=== PATIENT | female | born 1940 | race Caucasian/White ===

== ENCOUNTER 2021-10-14 18:40 | Inpatient (IN) | payer MEDICARE, OTHER, SELFPAY ==
--- NOTE | 2021-10-14 | ECG_ITS ---
Test Reason : REPEAT Blood Pressure : / mmHG Vent. Rate : 072 BPM Atrial Rate : 072 BPM P-R Int : 202 ms QRS Dur : 072 ms QT Int : 422 ms P-R-T Axes : 059 -10 012 degrees QTc Int : 462 ms Normal sinus rhythm Nonspecific ST and T wave abnormality Borderline ECG When compared with ECG of 14-OCT-2021 22:32, No significant change was found Referred By: Anand Diaz Electronically Signed By:RAJ DOMINGUEZ
--- NOTE | 2021-10-14 | ECG_ITS ---
Test Reason : BACK PAIN Blood Pressure : / mmHG Vent. Rate : 072 BPM Atrial Rate : 072 BPM P-R Int : 210 ms QRS Dur : 066 ms QT Int : 408 ms P-R-T Axes : 057 -09 012 degrees QTc Int : 446 ms Artifact in tracing Sinus rhythm with 1st degree A-V block Borderline ECG No previous ECGs available Referred By: Anand Diaz Electronically Signed By:RAJ DOMINGUEZ
--- NOTE | ~2021-10-14 | XR_ITS ---
EXAMINATION: XR CHEST CLINICAL INFORMATION: Chest pain with known right rib fractures. COMPARISON: Chest CT scan dated 10/14/2021 TECHNIQUE: Frontal view of the chest was obtained. FINDINGS: The lungs are clear. There is no pneumothorax. The heart and mediastinal structures are unremarkable. Moderate size hiatal hernia. Known right rib fractures without significant abnormality mild superior thoracic dextro scoliosis. XR/XR chest 1V IMPRESSION: 1. No acute cardiopulmonary process. No pneumothorax. 2. Known right rib fractures better visualized on the recent CT scan.
--- NOTE | ~2021-10-14 | CT_ITS ---
EXAMINATION: CT ABDOMEN AND PELVIS WITHOUT CONTRAST CLINICAL INFORMATION: Fall with question of abdominal injury COMPARISON: None TECHNIQUE: Multidetector volumetric imaging was performed from the superior aspect of the liver through the pubic symphysis. Sagittal and coronal reformatted images were obtained on the technologist's workstation. This CT examination was performed using dose optimization techniques as appropriate, variously including the following: *Automated exposure control *Adjustment of mA and/or kV according to patient size (this includes techniques or standardized protocols for targeted exams where dose is matched to indication/reason for exam; i.e. extremities or head) *Use of iterative reconstruction technique DLP: 485 mGy-cm FINDINGS: LUNG BASES: The visualized lung bases are unremarkable. LIVER, GALLBLADDER, AND BILIARY TREE: The liver is normal in size, shape, and attenuation. No focal hepatic lesion or biliary ductal dilatation is present. The gallbladder is unremarkable with no evidence of radiopaque gallstones, gallbladder wall thickening, or obvious pericholecystic inflammatory changes. PANCREAS: Unremarkable. SPLEEN: Unremarkable. ADRENAL GLANDS: Unremarkable. KIDNEYS AND URETERS: The kidneys are normal in size, shape, and attenuation. Bilateral renal cysts are present, mostly Bosniak class wine. 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 No hydronephrosis, hydroureter, or calculi seen. No perinephric stranding. BLADDER: Unremarkable. GASTROINTESTINAL TRACT: A small hiatal hernia is present. Status post right hemicolectomy. The small and large bowel are otherwise unremarkable. ABDOMINAL WALL: No significant hernia is appreciated. A tiny indirect right inguinal hernia seen containing only fat. LYMPH NODES: No retroperitoneal lymphadenopathy. No retroperitoneal hemorrhage. VASCULAR: Calcific atherosclerotic changes present in the aorta and iliofemoral vessels. PELVIC VISCERA: Surgically removed OSSEOUS STRUCTURES: Marked degenerative changes and scoliosis are present throughout the spine. CT/CT abdomen pelvis wo con IMPRESSION: No evidence of a traumatic injury in the abdomen or pelvis incidental findings described above Fleischner guidelines were followed.
--- NOTE | ~2021-10-14 | CT_ITS ---
EXAMINATION: CT CHEST WITHOUT CONTRAST CLINICAL INFORMATION: Right-sided chest pain after fall. COMPARISON: None TECHNIQUE: Multidetector volumetric CT imaging of the chest was done. Axial MIP volume rendering provided. Sagittal and coronal reformatted images were obtained. This CT examination was performed using dose optimization techniques as appropriate, variously including the following: *Automated exposure control *Adjustment of mA and/or kV according to patient size (this includes techniques or standardized protocols for targeted exams where dose is matched to indication/reason for exam; i.e. extremities or head) *Use of iterative reconstruction technique DLP: 206 mGy-cm FINDINGS: INTERN RETAIL: Noncontributory LUNGS: The lungs are clear with no evidence of inflammation or nodules. MEDIASTINUM: The mediastinum is normal. PLEURA: There is no pleural effusion. No pleural mass or thickening. AXILLA: No lymphadenopathy. UPPER ABDOMEN: Unremarkable. OSSEOUS STRUCTURES: Acute minimally displaced fractures involving the right seventh and eighth ribs posterolaterally. No underlying parenchymal abnormality. CT/CT chest wo con IMPRESSION: Minimally displaced right seventh and eighth rib fractures as above. This is acute. No pneumothorax. Fleischner guidelines were followed.
[2021-10-14 18:51] VITALS: BP 138/70; PULSE 72; O2SAT 100; BMI 27.3
--- NOTE | 2021-10-14 18:58 | ED_ITS ---
HPI - Fall General Chief Complaint: Fall Stated Complaint: fall Time Seen by Provider: 10/14/21 18:55 Source: patient and EMS Mode of arrival: EMS Limitations: no limitations History of Present Illness HPI Narrative: 81-year-old female came in by ambulance for evaluation after a fall. Patient was visiting her daughter for vacation going down missed 1 step of stair try to hold on the pole patient fell landing on her right side complaining of right chest wall pain, patient declined head injury, no LOC, no nausea, no vomiting. No headache, no blurry vision. Related Data Allergies Allergy/AdvReac Type Severity Reaction Status Date / Time No Known Allergies Allergy Verified 10/14/21 18:56 Review of Systems Review of Systems: All other systems are reviewed and are negative Constitutional: Reports as per HPI and Reports no additional constitutional complaints Eyes: Reports as per HPI and Reports no additional eye complaints Reports system reviewed and no additional complaints, except as documented Cardiovascular: Reports as per HPI and Reports no additional cardiovascular complaints Respiratory: Reports as per HPI and Reports no additional respiratory complaints Gastrointestinal: Reports as per HPI and Reports no additional gastrointestinal complaints Genitourinary: Reports no additional female genitourinary complaints Musculoskeletal: Reports no additional musculoskeletal complaints Skin/Breast: Reports system reviewed and no additional complaints, except as docu Psychiatric: Reports no additional psychiatric complaints Endocrine: Reports no additional endocrine complaints Hematologic/Lymphatic: Reports no additional hematologic/lymphatic complaints Allergic/Immunologic: Reports no additional allergic/immunologic complaints Reports system reviewed and no additional complaints, except as documented and Reports Abnormal speech present [facility] Social History Social History Advance Directives: Yes Advance Directives Information Provided: No Advance Directives on File: No Physical Exam Vital Signs: Vital Signs: Last Vital Signs Temp 98 F 10/14/21 19:24 Pulse 85 10/14/21 19:24 Resp 20 10/14/21 19:24 BP 135/55 L 10/14/21 19:24 Pulse Ox 99 10/14/21 19:24 O2 Del Method 10/14/21 19:24 BMI result Body Mass Index 27.3 Vital signs have been reviewed as appeared to be correct. Blood pressure normal. Heart rate normal. Respiration rate normal. Temperature normal. Oxygen saturation normal. Appearance: Alert. Oriented X3. No acute distress. Head: Normal external exam. Normocephalic. Atraumatic. No Mtz signs noted. No raccoon eyes noted Eyes: PERRLA. EOMI. Conjunctiva and sclera normal. Eyelids normal. ENT: TM's Normal. Pharynx normal. Uvula midline. Moist mucous membranes. No trismus noted. No drooling noted. No muffled voice noted. Neck: Normal inspection. Neck supple. FROM. No adenopathy. Thyroid Normal. No meningeal signs. No neck mass noted. CVS: Normal heart rate and rhythm. Heart sound normal. No murmurs noted. Pulses normal throughout. Respiratory: No respiratory distress. Painless inspiration. Breath sounds normal. No wheezes/rales/rhonchi noted. Right-sided chest wall tenderness, no step-off, no rebound tenderness, no deformity. No accessory muscle usage noted or decreased air movement noted. Abdomen: Soft and nontender. Bowel sounds normal in all 4 quadrants. No distention noted. No organomegaly noted. No visible injury noted. Back: No CVA tenderness. Full range of motion noted. Skin: Skin warm and dry. Normal skin color. Normal skin turgor. No rashes/lesions/lacerations noted. Extremities: No lower extremity edema. Extremities exhibit normal range of motion. Extremities nontender. Small skin tear of the right forearm. Neuro: Oriented X 3. Cranial nerve exam: II-XII are grossly intact No motor deficit. No sensory deficit. Reflexes normal. Course Course Course Narrative: 81-year-old female had a mechanical fall today, no head injury or LOC, CT of the chest showed to lower ribs fracture with no underlying lung injury or intra- abdominal injuries, given the age of the patient and the need for breathing exercises training the need of narcotic to control patient's pain will admit overnight. MDM - Fall Imaging Data Chest CT: Attestation: I personally reviewed and interpreted this imaging study as follows: Radiologist's impression: Minimally displaced right seventh and eighth rib fractures as above. This is acute. No pneumothorax.? ? Abdomen and pelvis CT: Attestation: I personally reviewed and interpreted this imaging study as follows: Radiologist's impression: No evidence of a traumatic injury in the abdomen or pelvis incidental findings described above? ? Discharge Plan Discharge Clinical Impression: Fracture of rib Patient Disposition: Admitted As Inpatient
[2021-10-14 19:24] VITALS: BP 135/55; PULSE 85; RESP 20; TEMP 36.6; O2SAT 99
[2021-10-14] MEDS: Morphine Sulfate 2 MG/ML CARTRIDGE IVPUSH (19:29)
--- NOTE | 2021-10-14 21:25 | PC.NURSE ---
kenneth daughter [phone] work # [phone]
[2021-10-14 21:26] VITALS: BP 130/59; RESP 16
[2021-10-14] MEDS: HYDROmorphone HCl 1 MG/ML SYRINGE IVPUSH (21:32)
--- NOTE | 2021-10-14 21:53 | PC.NURSE ---
REVIEWED PURPOSE AND METHOD FOR INCENTIVE SPIROMETRY . PT DEMONSTRATED APPROPRIATE USE. PT AWARE OF PLAN FOR ADMISSION. A&OX3.
[2021-10-14 22:00] LABS: MANUAL DIFF FLAG NO
[2021-10-14 22:03] LABS: Basophils Percent Auto 0.4 % (0-2); Eosinophils Percent Auto 0.4 % (0-4); Hematocrit 27.3 % (37.0-47.0); Hemoglobin 8.7 g/dl (12.0-16.0); Imm Gran Abs Auto 0.05 X10*3/uL (0.00-0.03); Imm Gran Pct Auto 0.5 % (0.0-0.4); Lymphocytes Absolute Auto 1.3 X10*3/uL (1.2-4.9); Lymphocytes Percent Auto 13.6 % (20-40); Mean Corpuscular HGB Conc 31.9 g/dl (31.0-35.0); Mean Corpuscular Hemoglobin 29.7 pg (27.0-33.0); Mean Corpuscular Volume 93.2 fL (80.0-98.0); Mean Platelet Volume 8.7 fL (9.4-12.3); Monocytes Absolute Auto 0.6 X10*3/uL (0.1-1.2); Monocytes Percent Auto 6.4 % (2-11); Neutrophils Absolute Auto 7.5 x10*3/uL (2.0-8.3); Neutrophils Percent Auto 78.7 % (45-73); Platelet Count 206 X10*3/uL (160-400); Red Blood Count 2.93 X10*6/uL (4.20-5.50); Red Cell Distribution Width 12.9 % (11.0-16.0); White Blood Count 9.5 X10*3/uL (4.8-10.8)
[2021-10-14 22:17] LABS: COVID-19 Test Negative (Negative)
[2021-10-14 22:22] LABS: Alanine Aminotransferase 17 U/L (0-31); Albumin Level 3.5 g/dL (3.5-5.0); Alkaline Phosphatase 54 U/L (39-117); Anion Gap 13 (12-20); Aspartate Amino Transferase 18 U/L (5-31); Bilirubin Direct < 0.2 mg/dL (0.0-0.5); Bilirubin Total < 0.2 mg/dL (0.0-1.0); Blood Urea Nitrogen 60 mg/dL (9-16); Calcium 8.2 mg/dL (8.4-10.2); Carbon Dioxide 18 mmol/L (22-29); Chloride 110 mmol/L (96-108); Creatinine Clr Calc Pharmacy 12.4; Estimated Glomerular Filt Rate 16; Glucose Random 153 mg/dL (60-115); Lipase 44 U/L (8-78); Potassium 4.1 mmol/L (3.3-5.1); Sodium 137 mmol/L (135-145)
[2021-10-14 23:42] VITALS: BP 130/52; PULSE 70; RESP 18; O2SAT 99
[2021-10-15] VITALS (8 sets, daily range): BP systolic 106–156; BP diastolic 55–75; PULSE 57–96; RESP 18–20; TEMP 36.1–37; O2SAT 59–98; BMI 28.3
--- NOTE | 2021-10-15 | PC.NURSE ---
repoirt given to [facility] rn, [facility] transport
[2021-10-15] MEDS: 0.9 % Sodium Chloride Flush 3 ML SYRINGE IVFLUSH ×4 (01:50→20:14)
--- NOTE | 2021-10-15 03:07 | PM.IMHP ---
History of Present Illness Date of Service: 10/14/21 Chief Complaint: Fall 81-year-old female with a past medical history of hypertension presented to the hospital today with a chief complaint of fall. Patient reports that she be state mass to see her daughter plan to stay here for 2 weeks. Today she was trying to get into the;, missed a step, subsequently landed on her side of the chest, hitting the stair. Denies any head strike or loss of consciousness. Followed by showed on of severe pain in her right lateral chest wall; subsequently came to the ER for further evaluation. Denies any neck pain, back pain, hip pain. Denies any numbness tingling or focal weakness. Denies any fever chills cough. Review of all other systems is negative except mentioned above ER course: Per ER team patient noted to have right lateral chest wall pain; CT chest showed to rib fractures. No pulmonary complications. Breathing comfortably on room air. Patient was given pain medications. On labs noted to have elevated troponin at 0 60s; EKG was nonischemic. Patient denied any chest pain. Admitted to the hospital for further management. PMFSH Pertinent family history: parents disease-father had lung cancer and bone cancer. Social History Household Members: None Housing: Apartment Do you presently have visiting nurse or other home services: No Patient Tobacco Use Status: Never used Tobacco Use of substances other than those prescribed or required for medical reasons: No Currently Displaying Signs/Symptoms of Drug Intoxication Withdrawal: No Any prior treatment program specific to substance use: No Have you been hit, kicked, punched, or otherwise hurt by someone within the past year? If so, by whom?: No Do you feel safe in your current relationship?: No Is there a partner from a previous relationship who is making you feel unsafe now?: No Are you made to feel afraid or neglected: No Advance Directives: Yes Advance Directives Information Provided: No Advance Directives on File: No Advance Directives Date on File: 10/15/21 Do you have thoughts of harming others: None Do you have a plan to hurt others: No Plan Recently lost weight without trying: No Eating poorly because of decreased appetite: No Nutrition Risks: No Nutritional Risk Patient : No : No Poor oral hygiene: No Meds Allergies Allergy/AdvReac Type Severity Reaction Status Date / Time No Known Allergies Allergy Verified 10/14/21 18:56 Active Medications: Current Medications Acetaminophen (Acetaminophen 325 Mg Tablet) 650 mg PO Q6H PRN PRN Reason: Pain, Mild (Pain Scale 1-3) Hydromorphone HCl (Hydromorphone Hcl 0.5 Mg/0.5 Ml Syringe) 0.5 mg IVPUSH Q4H PRN; Protocol PRN Reason: Pain, Severe (Pain Scale 7-10) Melatonin (Melatonin 3 Mg Tablet) 6 mg PO BEDTIME PRN PRN Reason: Insomnia Senna (Sennosides 8.6 Mg Tablet) 17.2 mg PO BEDTIME PRN PRN Reason: Constipation Sodium Chloride (0.9 % Sodium Chloride Flush 3 Ml Syringe) 3 ml IVFLUSH QSHIFT MARLENY Last Admin: 10/15/21 01:50 Dose: 3 ml Physical Exam Vital Signs and Narrative: Vital Signs: Last Vital Signs Temp 98.3 F 10/15/21 00:00 Pulse 96 10/15/21 00:00 Resp 20 10/15/21 00:00 BP 145/66 H 10/15/21 00:00 Pulse Ox 96 10/15/21 00:00 O2 Del Method 10/15/21 00:00 BMI result Body Mass Index 28.3 Gen: Appears be in no acute distress ; breathing comfortably on room air. Saturating well. HEENT: NCAT, Moist mucosa. Pulmonary: Vesicular breath sounds, fair air entry; tender on the right lateral chest wall; no gross ecchymosis noted. CVS: Normal S1-S2 Abdomen: BS+, Soft, Nontender Extremities: Warm well perfused ; trace pedal edema-chronic per patient Neuro: Alert and awake. Grossly nonfocal Results Labs CBC and Chem 7: 10/14/21 21:55 10/14/21 21:55 Labs: Laboratory Results - last 24 hr 10/14/21 10/14/21 10/14/21 21:55 21:55 21:55 MCV 93.2 MCH 29.7 MCHC 31.9 RDW 12.9 Plt Count 206 MPV 8.7 L Immature Gran % (Auto) 0.5 H Neut % (Auto) 78.7 H Lymph % (Auto) 13.6 L [place] % (Auto) 6.4 Eos % (Auto) 0.4 Baso % (Auto) 0.4 Lymph # (Auto) 1.3 [place] # (Auto) 0.6 Eos # (Auto) 0.0 Baso # (Auto) 0.0 Abs Immat Gran (auto) 0.05 H Absolute Neuts (auto) 7.5 Absolute Nucleated RBC 0.000 Nucleated RBC % (auto) 0.0 Anion Gap 13 Estim Creat Clear Calc 12.4 Estimated GFR 16 Random Glucose 153 H Calcium 8.2 L Total Bilirubin < 0.2 Direct Bilirubin < 0.2 AST 18 ALT 17 Alkaline Phosphatase 54 Troponin I High Sens 61.0 H* Total Protein 6.0 L Albumin 3.5 Lipase 44 COVID-19 ([facility]) COVID-19 Clin Com 10/14/21 10/15/21 21:55 01:19 MCV MCH MCHC RDW Plt Count MPV Immature Gran % (Auto) Neut % (Auto) Lymph % (Auto) [place] % (Auto) Eos % (Auto) Baso % (Auto) Lymph # (Auto) [place] # (Auto) Eos # (Auto) Baso # (Auto) Abs Immat Gran (auto) Absolute Neuts (auto) Absolute Nucleated RBC Nucleated RBC % (auto) Anion Gap Estim Creat Clear Calc Estimated GFR Random Glucose Calcium Total Bilirubin Direct Bilirubin AST ALT Alkaline Phosphatase Troponin I High Sens 69.0 H* Total Protein Albumin Lipase COVID-19 ([facility]) Negative COVID-19 Clin Com See Note Imaging Radiologist's Impressions: Impressions Abdomen/Pelvis CT 10/14/21 19:28 IMPRESSION: No evidence of a traumatic injury in the abdomen or pelvis incidental findings described above Fleischner guidelines were followed. Chest CT 10/14/21 19:59 IMPRESSION: Minimally displaced right seventh and eighth rib fractures as above. This is acute. No pneumothorax. Fleischner guidelines were followed. Assessment and Plan (1) Fracture of rib: Status: Acute Plan 81-year-old female with a past medical history of hypertension presented to the hospital today with a chief complaint of fall. Sustained rib fractures. Admitted for further management. Fall: Mechanical in nature. Rib fracture: CT scan showed minimally displaced 7th and 8 ribs. No pneumothorax. Pain control. CT surgery follow-up. elevated troponin: Patient denies any chest pain. EKG nonischemic. Troponin noted to be 61-->69. will obtain echocardiogram. Cardiology follow-up. History of hypertension: Continue home amlodipine. History of peripheral edema: Continue home torsemide. DVT prophylaxis: Subcu heparin Code status: Full code Quality Stroke Does the patient have a stroke diagnosis?: No VTE Prior VTE?: No VTE Risk Level:: Medical - moderate - high VTE Device Contraindication: N/A - Device Ordered VTE Drug Contraindication: Treatment Not Indicated
[2021-10-15] MEDS: HYDROmorphone HCl 0.5 MG/0.5 ML SYRINGE IVPUSH ×4 (04:19→21:44)
--- NOTE | 2021-10-15 04:22 | PC.NURSE ---
Pt arrived on unit around 00:40. Pt oriented to unit, admission assessment complete-see charting. Attempted to teach pt proper use of IS. Pt could not comprehend to suck (like a straw)instead of blowing into the IS. Pt awake at present time (04:19) C/O 10/10 right rib pain-medicated with prn IV Dilaudid. Attempt to reteach explaining its like a straw-pt cannot comprehend-continues to blow into IS. Will pass along in report and will continue to monitor.
[2021-10-15 06:26] LABS: MANUAL DIFF FLAG NO
[2021-10-15 06:32] LABS: Basophils Percent Auto 0.5 % (0-2); Eosinophils Absolute Auto 0.2 X10*3/uL (0.0-0.4); Eosinophils Percent Auto 2.3 % (0-4); Hematocrit 27.8 % (37.0-47.0); Hemoglobin 8.8 g/dl (12.0-16.0); Imm Gran Abs Auto 0.04 X10*3/uL (0.00-0.03); Imm Gran Pct Auto 0.5 % (0.0-0.4); Lymphocytes Absolute Auto 1.7 X10*3/uL (1.2-4.9); Mean Corpuscular HGB Conc 31.7 g/dl (31.0-35.0); Mean Corpuscular Hemoglobin 29.8 pg (27.0-33.0); Mean Corpuscular Volume 94.2 fL (80.0-98.0); Mean Platelet Volume 8.7 fL (9.4-12.3); Monocytes Percent Auto 12.3 % (2-11); Neutrophils Absolute Auto 5.2 x10*3/uL (2.0-8.3); Neutrophils Percent Auto 63.4 % (45-73); Platelet Count 200 X10*3/uL (160-400); Red Blood Count 2.95 X10*6/uL (4.20-5.50); White Blood Count 8.2 X10*3/uL (4.8-10.8)
[2021-10-15 06:47] LABS: Anion Gap 14 (12-20); Blood Urea Nitrogen 56 mg/dL (9-16); Calcium 8.2 mg/dL (8.4-10.2); Carbon Dioxide 17 mmol/L (22-29); Chloride 111 mmol/L (96-108); Creatinine Clr Calc Pharmacy 13.1; Estimated Glomerular Filt Rate 16; Glucose Random 109 mg/dL (60-115); Sodium 138 mmol/L (135-145)
--- NOTE | 2021-10-15 07:00 | CA_ITS ---
Transthoracic Echocardiogram Patient (Last, First, Middle): Kristina Stroud, Gender: Female Date of : 1940 Age: 81 Procedure Date: 10/15/2021 Procedure Type: Transthoracic Echocardiogram Location: [facility] [place] Height: 152.4 cm Weight: 65.32 kg BSA: 1.62 m2 Heart Rate: 60 bpm BP: 151 / 67 mmHg Fire Adjuster: SB Referring MD: Anand Diaz MD Magnetic Grinder Operator: Selvin Reveles MD Symptoms: elevated troponins Study Quality: Adequate/Contrast ECG Rhythm: Sinus Conclusions: - The left ventricular systolic function is normal. The visually estimated ejection fraction is between 65-70%. - There is mild calcification of the aortic valve. - There is mild tricuspid valve regurgitation. Findings Procedure Information Contrast agent, definity, is being given per protocol without apparent complications. Left Ventricle Normal left ventricular cavity size. There is normal left ventricular wall thickness. The left ventricular systolic function is normal. The visually estimated ejection fraction is between 65-70%. Diastolic function is normal for age. [id number] focal hypertrophy of the basal septum. Right Ventricle Normal right ventricular cavity size and systolic function. Atria Both atria are normal in size. Aortic Valve There is a normal trileaflet aortic valve. There is mild calcification of the aortic valve. There is no aortic valve stenosis. There is no aortic valve regurgitation. Mitral Valve The mitral valve appears normal. There is trace mitral valve regurgitation. There is no mitral valve stenosis. Pulmonic Valve The pulmonic valve is likely normal. Tricuspid Valve There is mild tricuspid valve regurgitation. The pulmonary artery systolic pressure is normal. Great Vessels The aortic annulus, sinuses of valsalva, and asc aorta are normal in size. Venous The inferior vena cava is normal in size and collapses greater than 50% with inspiration. Pericardium/Pleural There is no evidence of pericardial effusion. Prior Study Comparison No prior study available for comparison. Measurements 2D Linear Measurements IVSd: 0.66 0.6-0.9/0.6-1.0 cm LVIDd: 5.59 3.9-5.3/4.2-5.9 cm LVIDd Index: 3.45 2.4-3.2/2.2-3.1 cm/m2 LVIDs: 3.50 2.0-3.6 cm LVPWd: 0.75 0.7-1.1 cm LA Diam: 3.20 2.7-3.8/3.0-4.0 cm LAIDs Index: 1.98 1.5-2.3 cm/m2 LV Mass: 174.44 67-162/88-224 g LV Mass Index: 107.68 43-95/49-115 g/m2 LVOT Diam: 2.30 3.0+(-)1.3 cm 2D Systolic Function EF 4C: 87.00 >55% EF 2C: 61.40 >55% EF BiP: 77.80 >55% Mitral Valve MV Pk E: 0.79 MV PK A: 0.79 MV Decel Time: 197.00 E/A: 1.00 E'Lateral: 6.81 E'Medial: 4.78 E/E' Med: 16.50 E/E' Lat: 11.60 PHT: 58.00 MVA PHT: 3.79 Decel Stevens: 4.00 Aortic Valve AoV Pk Linden: 1.52 AoV Mn Linden: 1.07 AoV VTI: 0.34 AoV Pk Grad: 9.00 Aov Mn Grad: 5.00 JULIANNE Cont.VTI: 2.43 LVOT LVOT Pk Linden: 0.84 LVOT Mn Linden: 0.61 LVOT VTI: 0.20 LVOT Pk Grad: 3.00 LVOT Mn Grad: 2.00 LVOT Diam: 2.30 LVOT Area: 4.15 Diastolic Function MV Pk E: 0.79 MV Pk A: 0.79 E/A: 1.00 E'Medial: 4.78 E/E' Med: 16.50 E' Laterial: 6.81 E/E' Lat: 11.60 Right Ventricle TVS' Linden: 16.40 Tricuspid Valve TR Pk Linden: 2.25 TR Pk Grad: 20.00 RA Press: 3.00 RVSP: 23.00 Great Vessels Aorta Sinus of Valsalva: 3.10 2.0-3.[address] [place]: 3.00 1.7-3.4 cm Ao Asc: 3.00 2.1-3.4 cm Pulmonary Veins Pulm Vein S/D 1.40 Pulmonary Valve PV Pk Linden: 0.88 Peak PV Grad: 3.00 Updated in Other Vendor System with Status of Final Selvin Reveles MD electronically signed on 10/15/2021 1:34:43 PM with status of Final
[2021-10-15] MEDS: amLODIPine Besylate 10 MG TABLET PO (09:37)
[2021-10-15] MEDS: Metoprolol Tartrate 25 MG TABLET PO ×2 (09:37→20:11)
[2021-10-15] MEDS: Torsemide 20 MG TABLET PO (09:37)
[2021-10-15] MEDS: Acetaminophen 325 MG TABLET 650 MG PO ×2 (09:45→16:58)
--- NOTE | 2021-10-15 10:17 | PM.CNCAR ---
History of Present Illness History of Present Illness Date of Service: 10/15/21 Chief complaint: fall/ rib fractures Narrative: This is a cardiology consultation regarding elevated troponins. Patient lives in [place] and came to visit her daughter. It seems that she missed a step and lost balance and fell down. Current admitted with diagnosis of rib fracture. From a cardiac standpoint, slightly elevated troponins. She does not have any clear anginal-type symptoms. With moderate to severe exertion, she can feel some shortness of breath. Otherwise, has never had angina. No known coronary disease myocardial infarction or cardiomyopathy. Has hypertension on medications. Review of Systems Review of Systems: Yes all other systems are reviewed and are negative Constitutional: Constitutional: Reports as per HPI Eyes: Eyes: Reports as per HPI ENT: Reports as per HPI Cardiovascular: Cardiovascular: Reports as per HPI, Denies acrocyanosis, Denies cool extremities, Denies chest pain, Denies leg edema, Denies lightheadedness, Denies palpitations and Denies dyspnea Respiratory: Respiratory: Reports as per HPI (chest wall pain), Reports no additional respiratory complaints and Denies dyspnea Gastrointestinal: Gastrointestinal: Reports as per HPI and Reports no additional gastrointestinal complaints Genitourinary: Genitourinary: Reports as per HPI Musculoskeletal: Musculoskeletal: Reports no additional musculoskeletal complaints and Reports as per HPI Integumentary/Breasts: Skin/Breast: Reports system reviewed and no additional complaints, except as docu Neurologic: Reports system reviewed and no additional complaints, except as documented and Reports as per HPI Psychiatric: Psychiatric: Reports no additional psychiatric complaints and Reports as per HPI Endocrine: Endocrine: Reports no additional endocrine complaints, Reports as per HPI and Denies palpitations Hematologic/Lymphatic: Hematologic/Lymphatic: Reports no additional hematologic/lymphatic complaints and Reports as per HPI Allergic/Immunologic: Allergic/Immunologic: Reports no additional allergic/immunologic complaints and Reports as per HPI PMF Past Medical History Medical History (Updated 10/15/21 @ 10:23 by Selvin Reveles MD) Essential hypertension Family History Family History (Updated 10/15/21 @ 10:20 by Selvin Reveles MD) Mother Heart problem Social History Social History Household Members: None Housing: Apartment Do you presently have visiting nurse or other home services: No Patient Tobacco Use Status: Never used Tobacco Use of substances other than those prescribed or required for medical reasons: No Currently Displaying Signs/Symptoms of Drug Intoxication Withdrawal: No Any prior treatment program specific to substance use: No Have you been hit, kicked, punched, or otherwise hurt by someone within the past year? If so, by whom?: No Do you feel safe in your current relationship?: No Is there a partner from a previous relationship who is making you feel unsafe now?: No Are you made to feel afraid or neglected: No Advance Directives: Yes Advance Directives Information Provided: No Advance Directives on File: No Advance Directives Date on File: 10/15/21 Do you have thoughts of harming others: None Do you have a plan to hurt others: No Plan Recently lost weight without trying: No Eating poorly because of decreased appetite: No Nutrition Risks: No Nutritional Risk Patient : No : No Poor oral hygiene: No Meds Allergies Allergy/AdvReac Type Severity Reaction Status Date / Time No Known Allergies Allergy Verified 10/14/21 18:56 Active Medications: Current Medications Acetaminophen (Acetaminophen 325 Mg Tablet) 650 mg PO Q6H PRN PRN Reason: Pain, Mild (Pain Scale 1-3) Last Admin: 10/15/21 09:45 Dose: 650 mg Amlodipine Besylate (Amlodipine Besylate 10 Mg Tablet) 10 mg PO DAILY [facility]; Protocol Last Admin: 10/15/21 09:37 Dose: 10 mg Hydromorphone HCl (Hydromorphone Hcl 0.5 Mg/0.5 Ml Syringe) 0.5 mg IVPUSH Q4H PRN; Protocol PRN Reason: Pain, Severe (Pain Scale 7-10) Last Admin: 10/15/21 09:45 Dose: 0.5 mg Melatonin (Melatonin 3 Mg Tablet) 6 mg PO BEDTIME PRN PRN Reason: Insomnia Metoprolol Tartrate (Metoprolol Tartrate 25 Mg Tablet) 25 mg PO BID [facility]; Protocol Last Admin: 10/15/21 09:37 Dose: 25 mg Senna (Sennosides 8.6 Mg Tablet) 17.2 mg PO BEDTIME PRN PRN Reason: Constipation Sodium Chloride (0.9 % Sodium Chloride Flush 3 Ml Syringe) [facility] Last Admin: 10/15/21 09:38 Dose: 3 ml Torsemide (Torsemide 20 Mg Tablet) 20 mg PO DAILY [facility]; Protocol Last Admin: 10/15/21 09:37 Dose: 20 mg Home Medications Medication Instructions Recorded Confirmed Last Taken Type amlodipine 10 mg tablet 1 tab PO DAILY 10/15/21 10/15/21 Unknown History metoprolol tartrate 25 mg tablet 1 tab PO BID 10/15/21 10/15/21 Unknown History torsemide 20 mg tablet 1 tab PO QAM 10/15/21 10/15/21 Unknown History Physical Exam Vital Signs: Vital Signs: Last Vital Signs Temp 97.5 F 10/15/21 07:38 Pulse 81 10/15/21 07:38 Resp 20 10/15/21 07:38 BP 153/70 H 10/15/21 07:38 Pulse Ox 97 10/15/21 07:38 O2 Del Method 10/15/21 07:38 BMI result Body Mass Index 28.3 Const: General: comfortable and no acute distress Orientation/consciousness: patient oriented x3 HEENT: Other: Unremarkable Head: Yes normal to inspection Neck: Neck: Yes normal visual inspection Chest: Chest palpation & inspection: normal inspection of the chest Resp: Auscultation: diminished lung sounds Cardio: Palpation: normal PMI Heart sounds: S1 normal heart sound present, S2 normal heart sound present, no gallops, no murmurs and no rubs GI: Palpation (GI): Soft to palpation Back/Spine/Pelvis: Other: unremarkable Skin: General skin exam: no rashes or lesions noted Neuro: General: patient oriented x3 Extrem: General: Yes normal to inspection Psych: Mental Status: mental status grossly normal Objective Labs and Meds Result diagrams: 10/15/21 06:20 10/15/21 06:20 Lab results: Laboratory Results - last 24 hr 10/14/21 10/14/21 10/14/21 21:55 21:55 21:55 WBC 9.5 RBC 2.93 L Hgb 8.7 L Hct 27.3 L MCV 93.2 MCH 29.7 MCHC 31.9 RDW 12.9 Plt Count 206 MPV 8.7 L Immature Gran % (Auto) 0.5 H Neut % (Auto) 78.7 H Lymph % (Auto) 13.6 L Fallon % (Auto) 6.4 Eos % (Auto) 0.4 Baso % (Auto) 0.4 Lymph # (Auto) 1.3 Fallon # (Auto) 0.6 Eos # (Auto) 0.0 Baso # (Auto) 0.0 Abs Immat Gran (auto) 0.05 H Absolute Neuts (auto) 7.5 Absolute Nucleated RBC 0.000 Nucleated RBC % (auto) 0.0 Sodium 137 Potassium 4.1 Chloride 110 H Carbon Dioxide 18 L Anion Gap 13 BUN 60 H Creatinine 2.84 H Estim Creat Clear Calc 12.4 Estimated GFR 16 Random Glucose 153 H Calcium 8.2 L Total Bilirubin < 0.2 Direct Bilirubin < 0.2 AST 18 ALT 17 Alkaline Phosphatase 54 Troponin I High Sens 61.0 H* Total Protein 6.0 L Albumin 3.5 Lipase 44 COVID-19 ([facility]) COVID-19 Clin Com 10/14/21 10/15/21 10/15/21 21:55 01:19 06:20 WBC 8.2 RBC 2.95 L Hgb 8.8 L Hct 27.8 L MCV 94.2 MCH 29.8 MCHC 31.7 RDW 13.0 Plt Count 200 MPV 8.7 L Immature Gran % (Auto) 0.5 H Neut % (Auto) 63.4 Lymph % (Auto) 21.0 Fallon % (Auto) 12.3 H Eos % (Auto) 2.3 Baso % (Auto) 0.5 Lymph # (Auto) 1.7 Fallon # (Auto) 1.0 Eos # (Auto) 0.2 Baso # (Auto) 0.0 Abs Immat Gran (auto) 0.04 H Absolute Neuts (auto) 5.2 Absolute Nucleated RBC 0.000 Nucleated RBC % (auto) 0.0 Sodium Potassium Chloride Carbon Dioxide Anion Gap BUN Creatinine Estim Creat Clear Calc Estimated GFR Random Glucose Calcium Total Bilirubin Direct Bilirubin AST ALT Alkaline Phosphatase Troponin I High Sens 69.0 H* Total Protein Albumin Lipase COVID-19 ([facility]) Negative COVID-19 Clin Com See Note 10/15/21 10/15/21 06:20 07:59 WBC RBC Hgb Hct MCV MCH MCHC RDW Plt Count MPV Immature Gran % (Auto) Neut % (Auto) Lymph % (Auto) Fallon % (Auto) Eos % (Auto) Baso % (Auto) Lymph # (Auto) Fallon # (Auto) Eos # (Auto) Baso # (Auto) Abs Immat Gran (auto) Absolute Neuts (auto) Absolute Nucleated RBC Nucleated RBC % (auto) Sodium 138 Potassium 4.0 Chloride 111 H Carbon Dioxide 17 L Anion Gap 14 BUN 56 H Creatinine 2.75 H Estim Creat Clear Calc 13.1 Estimated GFR 16 Random Glucose 109 Calcium 8.2 L Total Bilirubin Direct Bilirubin AST ALT Alkaline Phosphatase Troponin I High Sens 67.0 H* Total Protein Albumin Lipase COVID-19 ([facility]) COVID-19 Clin Com ECG Interpretation: EKG with sinus rhythm at 72/Min; borderline [place] prolongation to 210 millisecond; nonspecific ST-T changes. Imaging Radiologist's impression: Impressions Abdomen/Pelvis CT 10/14/21 19:28 IMPRESSION: No evidence of a traumatic injury in the abdomen or pelvis incidental findings described above Fleischner guidelines were followed. Chest CT 10/14/21 19:59 IMPRESSION: Minimally displaced right seventh and eighth rib fractures as above. This is acute. No pneumothorax. Fleischner guidelines were followed. Assessment and Plan (1) Elevated troponin: Status: Acute (2) Renal failure: Status: Acute (3) Essential hypertension: Status: Acute Plan Labs reviewed. Diminished hemoglobin at 8.8. BUN 56. Creatinine is 2.75. High sensitivity troponins are 61, 69 and 67. Elevated troponins probably from underlying renal sufficiency itself. Could have some element of demand. Overall however it seems flat. With regard to renal failure itself, not clear if it is acute or chronic or acute on chronic. We do not have any prior values. With regard to elevated troponins, will review the echocardiogram that has already been completed. Otherwise no specific management at this time. Can consider outpatient ischemic testing when she returns back to her home town. With regard to renal failure, consider Nephrology input. Discussed with . Procedures Date of Service Date of Service: 10/15/21
--- NOTE | 2021-10-15 10:36 | HO.PM.IMPN ---
Subjective Subjective Date of Service: 10/15/21 Interval History: f/u on fall, rib fractures and elevated troponin i interval history: pain is controlled, no chest pain Review of Systems no fever no chest pain Physical Exam Vital Signs: Vital Signs: Last Vital Signs Temp 97.5 F 10/15/21 07:38 Pulse 81 10/15/21 07:38 Resp 20 10/15/21 07:38 BP 153/70 H 10/15/21 07:38 Pulse Ox 97 10/15/21 07:38 O2 Del Method 10/15/21 07:38 BMI result Body Mass Index 28.3 Const: Other: General: AO X 3, no acute distress Resp: CTA bilateral CVS: S1,S2,RRR GI: +BS, NT, no distention Skin: No rash Neuro: motor grossly intact Psych: appropriate affect Objective Data Active Medications Acetaminophen (Acetaminophen 325 Mg Tablet) 650 mg PO Q6H PRN PRN Reason: Pain, Mild (Pain Scale 1-3) Last Admin: 10/15/21 09:45 Dose: 650 mg Documented By: DESEAN Amlodipine Besylate (Amlodipine Besylate 10 Mg Tablet) 10 mg PO DAILY [facility]; Protocol Last Admin: 10/15/21 09:37 Dose: 10 mg Documented By: DESEAN Hydromorphone HCl (Hydromorphone Hcl 0.5 Mg/0.5 Ml Syringe) 0.5 mg IVPUSH Q4H PRN; Protocol PRN Reason: Pain, Severe (Pain Scale 7-10) Last Admin: 10/15/21 09:45 Dose: 0.5 mg Documented By: DESEAN Melatonin (Melatonin 3 Mg Tablet) 6 mg PO BEDTIME PRN PRN Reason: Insomnia Metoprolol Tartrate (Metoprolol Tartrate 25 Mg Tablet) 25 mg PO BID [facility]; Protocol Last Admin: 10/15/21 09:37 Dose: 25 mg Documented By: DESEAN Senna (Sennosides 8.6 Mg Tablet) 17.2 mg PO BEDTIME PRN PRN Reason: Constipation Sodium Chloride (0.9 % Sodium Chloride Flush 3 Ml Syringe) 3 ml IVFLUSH QSHIFT [facility] Last Admin: 10/15/21 09:38 Dose: 3 ml Documented By: DESEAN Torsemide (Torsemide 20 Mg Tablet) 20 mg PO DAILY [facility]; Protocol Last Admin: 10/15/21 09:37 Dose: 20 mg Documented By: DESEAN Labs CBC & Chem 7: 10/15/21 06:20 10/15/21 06:20 Labs: Laboratory Results - last 24 hr 10/14/21 10/14/21 10/14/21 21:55 21:55 21:55 MCV 93.2 MCH 29.7 MCHC 31.9 RDW 12.9 Plt Count 206 MPV 8.7 L Immature Gran % (Auto) 0.5 H Neut % (Auto) 78.7 H Lymph % (Auto) 13.6 L Bent % (Auto) 6.4 Eos % (Auto) 0.4 Baso % (Auto) 0.4 Lymph # (Auto) 1.3 Bent # (Auto) 0.6 Eos # (Auto) 0.0 Baso # (Auto) 0.0 Abs Immat Gran (auto) 0.05 H Absolute Neuts (auto) 7.5 Absolute Nucleated RBC 0.000 Nucleated RBC % (auto) 0.0 Anion Gap 13 Estim Creat Clear Calc 12.4 Estimated GFR 16 Random Glucose 153 H Calcium 8.2 L Total Bilirubin < 0.2 Direct Bilirubin < 0.2 AST 18 ALT 17 Alkaline Phosphatase 54 Troponin I High Sens 61.0 H* Total Protein 6.0 L Albumin 3.5 Lipase 44 COVID-19 ([facility]) COVID-19 Clin Com 10/14/21 10/15/21 10/15/21 21:55 01:19 06:20 MCV 94.2 MCH 29.8 MCHC 31.7 RDW 13.0 Plt Count 200 MPV 8.7 L Immature Gran % (Auto) 0.5 H Neut % (Auto) 63.4 Lymph % (Auto) 21.0 Bent % (Auto) 12.3 H Eos % (Auto) 2.3 Baso % (Auto) 0.5 Lymph # (Auto) 1.7 Bent # (Auto) 1.0 Eos # (Auto) 0.2 Baso # (Auto) 0.0 Abs Immat Gran (auto) 0.04 H Absolute Neuts (auto) 5.2 Absolute Nucleated RBC 0.000 Nucleated RBC % (auto) 0.0 Anion Gap Estim Creat Clear Calc Estimated GFR Random Glucose Calcium Total Bilirubin Direct Bilirubin AST ALT Alkaline Phosphatase Troponin I High Sens 69.0 H* Total Protein Albumin Lipase COVID-19 ([facility]) Negative COVID-19 Clin Com See Note 10/15/21 10/15/21 06:20 07:59 MCV MCH MCHC RDW Plt Count MPV Immature Gran % (Auto) Neut % (Auto) Lymph % (Auto) Bent % (Auto) Eos % (Auto) Baso % (Auto) Lymph # (Auto) Bent # (Auto) Eos # (Auto) Baso # (Auto) Abs Immat Gran (auto) Absolute Neuts (auto) Absolute Nucleated RBC Nucleated RBC % (auto) Anion Gap 14 Estim Creat Clear Calc 13.1 Estimated GFR 16 Random Glucose 109 Calcium 8.2 L Total Bilirubin Direct Bilirubin AST ALT Alkaline Phosphatase Troponin I High Sens 67.0 H* Total Protein Albumin Lipase COVID-19 ([facility]) COVID-19 Clin Com Assessment and Plan (1) Essential hypertension: Status: Acute (2) Rib fractures: Status: Acute Plan ?81-year-old female with a past medical history of hypertension presented to the hospital today with a chief complaint of fall.? ? Sustained rib fractures.? Admitted for further management.? Fall: Mechanical in nature.? Rib fractures:? CT scan showed minimally displaced 7th and 8 ribs.? No pneumothorax.? Pain control.? CT surgery follow-up. Incentive spirometry ?elevated troponin: Patient denies any chest pain.? EKG nonischemic.? Troponin noted to be 61-->69-->67.? likely d/t ckd, no further testing per cardiology History of hypertension:? Continue home amlodipine.? History of peripheral edema: Continue home torsemide. DVT prophylaxis:? Subcu heparin Code status:? Full code Inpatient need: fall rib fracture, tele monitoring to rule arrythmia, PT eval , pain control fom rib fractre Quality Stroke Does the patient have a stroke diagnosis?: No VTE Prior VTE?: No VTE Risk Level:: Medical - moderate - high VTE Device Contraindication: N/A - Device Ordered VTE Drug Contraindication: Treatment Not Indicated
--- NOTE | 2021-10-15 12:58 | MHC.CM.PN ---
No IMM needed. Pt reports she lives alone, in elder housing, in [place]. She is here visiting her daughter, Jo Ann Powers. She is independent at home/community, does not receive any services at home, and has a walker available if needed. She has a Living Will naming both of her daughters as decision makers when needed. Pt educated about HCP, she declined stating she will do so once she is back home. Mehul martin'd x2. Reports her PCP has left the practice and sees PA but did not provide information. Pt reports her daughter, Jo Ann, will provide transportation. D/C Plan: Home (self-care) vs STR pending PT evaluation.
[2021-10-16] VITALS (8 sets, daily range): BP systolic 125–161; BP diastolic 59–74; PULSE 66–86; RESP 17–20; TEMP 36–37.3; O2SAT 92–97
[2021-10-16] MEDS: HYDROmorphone HCl 0.5 MG/0.5 ML SYRINGE IVPUSH ×4 (03:26→19:51)
[2021-10-16] MEDS: amLODIPine Besylate 10 MG TABLET PO (09:00)
[2021-10-16] MEDS: Metoprolol Tartrate 25 MG TABLET PO ×2 (09:00→19:52)
[2021-10-16] MEDS: 0.9 % Sodium Chloride Flush 3 ML SYRINGE IVFLUSH ×3 (09:00→19:52)
[2021-10-16] MEDS: Torsemide 20 MG TABLET PO (09:00)
--- NOTE | 2021-10-16 10:16 | PM.PNCARD ---
Subjective Subjective Date of Service: 10/16/21 Interval history: She is on lot of pain from the rib fracture but no cardiac symptoms. Review of Systems Review of Systems Yes all other systems are reviewed and are negative Constitutional: Reports as per HPI Eyes: Reports as per HPI Reports as per HPI Cardiovascular: Reports as per HPI, Denies acrocyanosis, Denies cool extremities, Denies chest pain, Denies leg edema, Denies lightheadedness, Denies palpitations and Denies dyspnea Respiratory: Reports as per HPI, Reports no additional respiratory complaints, Denies dyspnea and Reports other (rib pain) Gastrointestinal: Reports as per HPI and Reports no additional gastrointestinal complaints Genitourinary: Reports as per HPI Musculoskeletal: Reports no additional musculoskeletal complaints and Reports as per HPI Skin/Breast: Reports system reviewed and no additional complaints, except as docu Reports system reviewed and no additional complaints, except as documented and Reports as per HPI Psychiatric: Reports no additional psychiatric complaints and Reports as per HPI Endocrine: Reports no additional endocrine complaints, Reports as per HPI and Denies palpitations Hematologic/Lymphatic: Reports no additional hematologic/lymphatic complaints and Reports as per HPI Allergic/Immunologic: Reports no additional allergic/immunologic complaints and Reports as per HPI Physical Exam Vital Signs: Last Vital Signs Temp 96.8 F 10/16/21 07:14 Pulse 69 10/16/21 09:46 Resp 17 10/16/21 07:14 BP 136/64 10/16/21 09:46 Pulse Ox 96 10/16/21 09:46 O2 Del Method 10/16/21 07:14 BMI result Body Mass Index 28.3 Const General: alert, awake and in distress (from rib pain) Orientation/consciousness: patient oriented x3 HEENT Other: Unremarkable Head: Yes normal to inspection Neck Neck: Yes normal visual inspection Chest Chest palpation & inspection: normal inspection of the chest Resp Auscultation: clear to auscultation bilaterally Cardio Palpation: normal PMI Heart sounds: S1 normal heart sound present, S2 normal heart sound present, no gallops, no murmurs and no rubs GI Palpation (GI): Soft to palpation Back/Spine/Pelvis Other: unremarkable Skin General skin exam: no rashes or lesions noted Neuro General: patient oriented x3 Extrem General: Yes normal to inspection Psych Mental Status: mental status grossly normal Objective Labs and Meds Result diagrams: 10/15/21 06:20 10/15/21 06:20 Progress Note: A&P Assessment and plan (1) Elevated troponin: Status: Acute (2) Renal failure: Status: Acute (3) Essential hypertension: Status: Acute Plan Slight troponin elevation probably from renal insufficiency itself. Could have some demand related leak on top of that. However not clearly suggestive of [place] as the levels are flat. Echocardiogram with LVEF of 65-70%. There is mild aortic valve calcification mild tricuspid regurgitation. At this time, no specific cardiac intervention necessary as inpatient. Can see cardiology as an outpatient where she lives for consideration of ischemia workup. Discussed about this with the patient. Also discussed with Dr. Cramer. Time Spent With Patient Time: Total time spent is greater than 50% in coordination of care (as documented) at patient's floor/unit and/or counseling patient: 25min Progress Note: Quality Stroke Does the patient have a stroke diagnosis?: No Procedures Date of Service Date of Service: 10/16/21
--- NOTE | 2021-10-16 14:07 | MHC.CM.PN ---
PT is recommending STR, patient and daughter in agreement and requested STR close to [facility] Ybarra, and [place]. SNF referrals have been initiated. Patient completed HCP form, original and copies to patient, copy uploaded to [employer] and copy filed in chart. PCP: [facility] [address] [place] [address] [address], [place] [address] Task sent for PCP.
--- NOTE | 2021-10-16 15:49 | HO.PM.IMPN ---
Subjective Subjective Date of Service: 10/16/21 Interval History: rib fx Review of Systems sill has right chest wall area pain denies any nausea or vomiting or abd pain or fever or chills Physical Exam Vital Signs: Vital Signs: Last Vital Signs Temp 97.1 F 10/16/21 15:11 Pulse 75 10/16/21 15:11 Resp 18 10/16/21 15:11 BP 126/61 10/16/21 15:11 Pulse Ox 97 10/16/21 15:11 O2 Del Method 10/16/21 15:11 BMI result Body Mass Index 28.3 General: AO X 3, no acute distress Resp:? CTA bilateral CVS: S1,S2,RRR,right chest wall pain. GI: +BS, NT, no distention Skin: No rash Neuro:? motor grossly intact Psych: appropriate affect Objective Data Active Medications Acetaminophen (Acetaminophen 325 Mg Tablet) 650 mg PO Q6H PRN PRN Reason: Pain, Mild (Pain Scale 1-3) Last Admin: 10/15/21 16:58 Dose: 650 mg Documented By: DESEAN Amlodipine Besylate (Amlodipine Besylate 10 Mg Tablet) 10 mg PO DAILY [facility]; Protocol Last Admin: 10/16/21 09:00 Dose: 10 mg Documented By: MISBAH Hydromorphone HCl (Hydromorphone Hcl 0.5 Mg/0.5 Ml Syringe) 0.5 mg IVPUSH Q4H PRN; Protocol PRN Reason: Pain, Severe (Pain Scale 7-10) Last Admin: 10/16/21 15:12 Dose: 0.5 mg Documented By: MISBAH Melatonin (Melatonin 3 Mg Tablet) 6 mg PO BEDTIME PRN PRN Reason: Insomnia Metoprolol Tartrate (Metoprolol Tartrate 25 Mg Tablet) 25 mg PO BID [facility]; Protocol Last Admin: 10/16/21 09:00 Dose: 25 mg Documented By: MISBAH Senna (Sennosides 8.6 Mg Tablet) 17.2 mg PO BEDTIME PRN PRN Reason: Constipation Sodium Chloride (0.9 % Sodium Chloride Flush 3 Ml Syringe) 3 ml IVFLUSH QSHIFT [facility] Last Admin: 10/16/21 09:00 Dose: 3 ml Documented By: MISBAH Torsemide (Torsemide 20 Mg Tablet) 20 mg PO DAILY [facility]; Protocol Last Admin: 10/16/21 09:00 Dose: 20 mg Documented By: MISBAH Labs CBC & Chem 7: 10/15/21 06:20 10/15/21 06:20 Assessment and Plan (1) Rib fractures: Status: Acute (2) Renal failure: Status: Acute Plan ?81-year-old female with a past medical history of hypertension presented to the hospital today with a chief complaint of fall.? ? Sustained rib fractures.? Admitted for further management.? Fall: Mechanical in nature.? Rib fractures:? CT scan showed minimally displaced 7th and 8 ribs.? No pneumothorax.? Pain control.? CT surgery follow-up. Incentive spirometry pain management-with dilaudid/tylenol ?elevated troponin: Patient denies any chest pain.? EKG nonischemic.? Troponin noted to be 61-->69-->67.? likely d/t ckd, no further testing per cardiology Echocardiogram with LVEF of 65-70%.? There is mild aortic valve calcification mild tricuspid regurgitation. At this time, no specific cardiac intervention necessary as inpatient. Can see cardiology as an outpatient where she lives for consideration of ischemia workup. follow up with her cardilogist in [place]. patient pcp office made aware. History of hypertension:? Continue home amlodipine.? History of peripheral edema: Continue home torsemide. CKD Stage 4: spoke to patient pcp's office LILLIAM Frausto : patient baseline cr is 2.9. DVT prophylaxis:? Subcu heparin PT eval -recomended rehab. Inpatient need: fall rib fracture- pain control fom rib fractre. Quality Stroke Does the patient have a stroke diagnosis?: No VTE Prior VTE?: No VTE Risk Level:: Medical - moderate - high VTE Device Contraindication: N/A - Device Ordered VTE Drug Contraindication: Treatment Not Indicated
[2021-10-16] MEDS: Heparin Sodium,Porcine 5,000 UNIT/ML VIAL 5000 UNIT SUBCUT (17:43)
[2021-10-17] VITALS (7 sets, daily range): BP systolic 112–169; BP diastolic 54–75; PULSE 65–78; RESP 18; TEMP 36.1–36.6; O2SAT 90–97
[2021-10-17] MEDS: Heparin Sodium,Porcine 5,000 UNIT/ML VIAL 5000 UNIT SUBCUT ×2 (06:53→17:52)
--- NOTE | 2021-10-17 08:26 | P.CONGS_ITS ---
History of Present Illness Consult details Consult date: 10/17/21 Reason for consult: other (rib fractures) Narrative: Ms. Stroud is a [place]entin 81 year old female who sustained a mechanical fall on 10/14/2021. She was attempting to go down 2 stairs, however slipped and fell down the stairs. States she fell on to her right arm and chest. Denies any head injury or LOC. Was brought to the ER after the fall for evaluation where she was found to have acute rib fractures of right sided ribs #7-8 and elevated troponin. Her Cr was also elevated, however it was found that her baseline Cr is 2.9. She was admitted to the medical service for ongoing management. Cardiology has been following the patient as well and feels that the bump in troponin is likely related to her renal disease +/- demand ischemia. At time of my visit, the patient states she continues to have fairly severe pain over the right lower lateral/posterior chest wall which is worse with movement, deep breathing, and coughing. Has been using an IS getting it to about 1000. Has been getting OOB within the room with a walker and assistance. States she is starting to develop a more congested cough, but denies any SOB or JONES. Review of Systems Constitutional: Constitutional: Denies body ache(s), Denies chills, Denies fatigue, Denies fever(s), Denies frequent falls, Denies headache(s), Denies lethargy, Denies night sweats, Denies poor appetite and Denies weight loss Eyes: Eyes: Denies blurry vision and Denies loss of vision ENT: Denies dysphagia, Denies headache(s), Denies hoarseness, Denies odynophagia, Denies sore throat and Denies throat swelling Cardiovascular: Cardiovascular: Denies chest pain, Denies syncope, Denies pedal edema, Denies irregular heart rhythm, Denies lightheadedness, Denies dyspnea and Denies dyspnea on exertion Respiratory: Respiratory: Denies cough, Denies hemoptysis, Reports pain on inspiration, Reports pain with cough, Denies dyspnea, Denies dyspnea on exertion, Denies wheezing and Reports other (+pain right chest wall ) Gastrointestinal: Gastrointestinal: Denies abdominal pain, Denies dysphagia, Denies nausea, Denies odynophagia and Denies vomiting Genitourinary: Genitourinary: Denies dysuria Musculoskeletal: Musculoskeletal: Denies back pain, Denies tingling and Reports other (+pain right forearm) Neurologic: Denies confusion, Denies syncope, Denies frequent falls, Denies headache(s), Denies loss of vision, Denies tingling and Denies paresthesias Psychiatric: Psychiatric: Denies confusion Endocrine: Endocrine: Denies fatigue Allergic/Immunologic: Allergic/Immunologic: Denies throat swelling and Denies wheezing PMFSH Past Medical History Medical History Essential hypertension Family History Family History (Updated 10/15/21 @ 10:20 by Selvin Reveles MD) Mother Heart problem Social History Social History Household Members: None Housing: Apartment Do you presently have visiting nurse or other home services: No Patient Tobacco Use Status: Never used Tobacco Use of substances other than those prescribed or required for medical reasons: No Currently Displaying Signs/Symptoms of Drug Intoxication Withdrawal: No Any prior treatment program specific to substance use: No Have you been hit, kicked, punched, or otherwise hurt by someone within the past year? If so, by whom?: No Do you feel safe in your current relationship?: No Is there a partner from a previous relationship who is making you feel unsafe now?: No Are you made to feel afraid or neglected: No Advance Directives: Yes Advance Directives Information Provided: No Advance Directives on File: No Advance Directives Date on File: 10/15/21 Do you have thoughts of harming others: None Do you have a plan to hurt others: No Plan Recently lost weight without trying: No Eating poorly because of decreased appetite: No Nutrition Risks: No Nutritional Risk Patient : No : No Poor oral hygiene: No service: No Current occupational status: retired Meds Allergies Allergy/AdvReac Type Severity Reaction Status Date / Time No Known Allergies Allergy Verified 10/14/21 18:56 Active Medications: Current Medications Acetaminophen (Acetaminophen 325 Mg Tablet) 975 mg PO Q6H [facility] Amlodipine Besylate (Amlodipine Besylate 10 Mg Tablet) 10 mg PO DAILY [facility]; Protocol Last Admin: 10/16/21 09:00 Dose: 10 mg Heparin Sodium (Porcine) (Heparin Sodium,Porcine 5,000 Unit/Ml Vial) 5,000 unit SUBCUT Q12H [facility] Last Admin: 10/17/21 06:53 Dose: 5,000 unit Hydromorphone HCl (Hydromorphone Hcl 0.5 Mg/0.5 Ml Syringe) 0.5 mg IVPUSH Q4H PRN; Protocol PRN Reason: severe breakthrough pain Melatonin (Melatonin 3 Mg Tablet) 6 mg PO BEDTIME PRN PRN Reason: Insomnia Metoprolol Tartrate (Metoprolol Tartrate 25 Mg Tablet) 25 mg PO BID [facility]; Protocol Last Admin: 10/16/21 19:52 Dose: 25 mg Oxycodone HCl (Oxycodone Hcl Immed Release 5 Mg Tablet) 5 mg PO Q4H PRN PRN Reason: Pain, Moderate (Pain Scale 4-6 Oxycodone HCl (Oxycodone Hcl Immed Release 5 Mg Tablet) 10 mg PO Q4H PRN PRN Reason: Pain, Severe (Pain Scale 7-10) Senna (Sennosides 8.6 Mg Tablet) 17.2 mg PO BEDTIME PRN PRN Reason: Constipation Sodium Chloride (0.9 % Sodium Chloride Flush 3 Ml Syringe) 3 ml IVFLUSH QSHIFT [facility] Last Admin: 10/16/21 19:52 Dose: 3 ml Torsemide (Torsemide 20 Mg Tablet) 20 mg PO DAILY [facility]; Protocol Last Admin: 10/16/21 09:00 Dose: 20 mg Home Medications Medication Instructions Recorded Confirmed Last Taken Type amlodipine 10 mg tablet 1 tab PO DAILY 10/15/21 10/15/21 Unknown History metoprolol tartrate 25 mg tablet 1 tab PO BID 10/15/21 10/15/21 Unknown History torsemide 20 mg tablet 1 tab PO QAM 10/15/21 10/15/21 Unknown History Physical Exam Vital Signs: Vital Signs: Last Vital Signs Temp 97 F 10/17/21 07:18 Pulse 78 10/17/21 07:18 Resp 18 10/17/21 07:18 BP 169/72 H 10/17/21 07:18 Pulse Ox 97 10/17/21 07:18 O2 Del Method 10/17/21 07:18 BMI result Body Mass Index 28.3 General: No acute distress, resting comfortably in recliner chair (but appears uncomfortable due to pain when moving or coughing), well developed Head: Normocephalic, atraumatic, symmetric Eyes: Sclera anicteric, eyelids without edema or erythema, +EOMS intact ENT: Oral mucosa and tongue are moist without lesions or exudates Neck: Soft, supple, symmetric, trachea midline, no crepitus Cardiovascular: Regular rate and rhythm, no murmur/rubs/gallops, BUE and BLE without edema, no calf tenderness bilaterally Respiratory: Lungs CTA B, breathing nonlabored, speaking in full sentences, on room air. No use of accessory muscles. +edema over lower right lateral/posterior chest wall associated with pain with palpation (corresponding with rib fracture sites). No paradoxical chest wall movement. No significant ecchymosis. Gastrointestinal: Soft, non-tender, non-distended, +normoactive bowel sounds. Skin: Warm and dry throughout, no rashes Lymphatic: no cervical, supraclavicular, infraclavicular lymphadenopathy noted Musculoskeletal: Right forearm with bandage C/D/I (associated with abrasion per patient) Neurological: Alert and oriented x 3, no focal neurological deficit noted Genitourinary: Deferred. Psychiatric: No agitation, appropriate affect Const: General: No confusion Orientation/consciousness: No confusion Neuro: General: No confusion Results Labs Result diagrams: 10/15/21 06:20 10/15/21 06:20 Labs: All other labs normal. Imaging Chest x-ray: report reviewed and image reviewed Abdomen CT scan report/results: report reviewed and image reviewed CT scan - chest: report reviewed and image reviewed Additional studies: XRay Report Signed Patient: Kristina Stroud MR#: [id number] : 1940 Date of Service: 10/16/21 Procedure(s): XR chest 1V Accession Number(s): [id number] cc: Lalitha Cramer MD~ EXAMINATION: XR CHEST CLINICAL INFORMATION: Chest pain with known right rib fractures. COMPARISON: Chest CT scan dated 10/14/2021 TECHNIQUE: Frontal view of the chest was obtained. FINDINGS: The lungs are clear. There is no pneumothorax. The heart and mediastinal structures are unremarkable. Moderate size hiatal hernia. Known right rib fractures without significant abnormality mild superior thoracic dextro scoliosis. XR/XR chest 1V IMPRESSION: ? 1. No acute cardiopulmonary process. No pneumothorax. 2. Known right rib fractures better visualized on the recent CT scan. CT Scan Report Signed Patient: Kristina Stroud MR#: [id number] : 1940 Date of Service: 10/14/21 Procedure(s): CT chest wo con Accession Number(s): [id number] cc: Deborah Andrew MD~ EXAMINATION: CT CHEST WITHOUT CONTRAST CLINICAL INFORMATION: Right-sided chest pain after fall.? COMPARISON: None? TECHNIQUE: Multidetector volumetric CT imaging of the chest was done. Axial MIP volume rendering provided. Sagittal and coronal reformatted images were obtained.? This CT examination was performed using dose optimization techniques as appropriate, variously including the following: *Automated exposure control *Adjustment of mA and/or kV according to patient size (this includes techniques or standardized protocols for targeted exams where dose is matched to indication/reason for exam; i.e. extremities or head) *Use of iterative reconstruction technique DLP: 206 mGy-cm FINDINGS: CLINICAL SCIENCE CONSULTANT: Noncontributory LUNGS: The lungs are clear with no evidence of inflammation or nodules. ? MEDIASTINUM: The mediastinum is normal.? PLEURA: There is no pleural effusion. No pleural mass or thickening.? AXILLA: No lymphadenopathy.? UPPER ABDOMEN: Unremarkable.? OSSEOUS STRUCTURES: Acute minimally displaced fractures involving the right seventh and eighth ribs posterolaterally. No underlying parenchymal abnormality.? CT/CT chest wo con IMPRESSION: Minimally displaced right seventh and eighth rib fractures as above. This is acute. No pneumothorax.? CT Scan Report Signed Patient: Kristina Stroud MR#: [id number] : 1940 Date of Service: 10/14/21 Procedure(s): CT abdomen pelvis wo con Accession Number(s): [id number] cc: Deborah Andrew MD~ EXAMINATION: CT ABDOMEN AND PELVIS WITHOUT CONTRAST? CLINICAL INFORMATION: Fall with question of abdominal injury? COMPARISON: None? TECHNIQUE: Multidetector volumetric imaging was performed from the superior aspect of the liver through the pubic symphysis. Sagittal and coronal reformatted images were obtained on the technologist's workstation.? This CT examination was performed using dose optimization techniques as appropriate, variously including the following: *Automated exposure control *Adjustment of mA and/or kV according to patient size (this includes techniques or standardized protocols for targeted exams where dose is matched to indication/reason for exam; i.e. extremities or head) *Use of iterative reconstruction technique DLP: 485 mGy-cm FINDINGS: LUNG BASES: The visualized lung bases are unremarkable.? LIVER, GALLBLADDER, AND BILIARY TREE: The liver is normal in size, shape, and attenuation. No focal hepatic lesion or biliary ductal dilatation is present. The gallbladder is unremarkable with no evidence of radiopaque gallstones, gallbladder wall thickening, or obvious pericholecystic inflammatory changes.? PANCREAS: Unremarkable.? SPLEEN: Unremarkable.? ADRENAL GLANDS: Unremarkable.? KIDNEYS AND URETERS: The kidneys are normal in size, shape, and attenuation. Bilateral renal cysts are present, mostly Bosniak class wine. 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 No hydronephrosis, hydroureter, or calculi seen. No perinephric stranding. ? BLADDER: Unremarkable.? GASTROINTESTINAL TRACT: A small hiatal hernia is present. Status post right hemicolectomy. The small and large bowel are otherwise unremarkable. ? ABDOMINAL WALL: No significant hernia is appreciated. A tiny indirect right inguinal hernia seen containing only fat. LYMPH NODES: No retroperitoneal lymphadenopathy. No retroperitoneal hemorrhage. VASCULAR: Calcific atherosclerotic changes present in the aorta and iliofemoral vessels. PELVIC VISCERA: Surgically removed? OSSEOUS STRUCTURES: Marked degenerative changes and scoliosis are present throughout the spine.? CT/CT abdomen pelvis wo con IMPRESSION: No evidence of a traumatic injury in the abdomen or pelvis incidental findings described above? Assessment and Plan (1) Rib fractures: Status: Acute Ms. Stroud is an 81 year old female who sustained a mechanical fall a few days ago resulting in acute rib fractures of right sided ribs #7-8. Patient has not been optimized from a pain management perspective. Would strongly recommend against discharge from the hospital until her pain is better controlled. Elderly patients with more than 1 rib fracture are at sign ificantly higher risk of severe complications such as life threatening pneumonia and respiratory failure. * I have changed her pain regimen to the following: Tylenol 650mg PO q6h ATC (max dose for this patient is 3000mg per pharmacy), Dilaudid 0.5mg IV q4h prn severe breakthrough pain, and oxycodone 5-10mg PO q4h prn based on pain scale. Lidocaine patch over the affected area daily. Cannot give Toradol due to BALTA. Narcan has been ordered as needed for opiate reversal. * Pulmonary toileting is also of upmost importance in rib fractures. She has gotten her IS to 1000, but has not been ambulating outside of her room. Flutter valve device ordered. Mucinex ordered x 5 days to aide with mucous management. * She needs to be OOB ambulating in the hallways at least 3-4 times per day MINIMUM. If her pain does not become controlled over the next day or 2, or if her respiratory status worsens, she may require rib plating. Case discussed with Dr. Lima. Thank you for the consultation. We will follow along with you to ensure this patient improves clinically. Procedures Date of Service Date of Service: 10/17/21
[2021-10-17] MEDS: amLODIPine Besylate 10 MG TABLET PO (10:07)
[2021-10-17] MEDS: Metoprolol Tartrate 25 MG TABLET PO ×2 (10:07→21:30)
[2021-10-17] MEDS: guaiFENesin LA 600 MG TAB.ER.12H 1200 MG PO ×2 (10:08→21:30)
[2021-10-17] MEDS: 0.9 % Sodium Chloride Flush 3 ML SYRINGE IVFLUSH ×3 (10:08→21:30)
[2021-10-17] MEDS: Acetaminophen 325 MG TABLET 650 MG PO ×3 (10:08→21:30)
[2021-10-17] MEDS: HYDROmorphone HCl 0.5 MG/0.5 ML SYRINGE IVPUSH ×2 (10:09→15:59)
[2021-10-17] MEDS: Lidocaine 4 % Patch ADH..PATCH 1 PATCH TRANSDERMA (10:09)
[2021-10-17] MEDS: oxyCODONE HCl Immed Release 5 MG TABLET 10 MG PO ×2 (10:54→17:51)
--- NOTE | 2021-10-17 14:11 | MHC.CM.PN ---
Per ROUNDS discussion, patient is not yet medically cleared for discharge r/t pain management (rib fractures from a fall). Pt has accepted bed offer from [facility]. Cm will continue to follow for discharge needs.
--- NOTE | 2021-10-17 14:48 | HO.PM.IMPN ---
Subjective Subjective Date of Service: 10/17/21 Interval History: rib fx Review of Systems sill has right chest wall area pain denies any nausea or vomiting or abd pain or fever or chills Physical Exam Vital Signs: Vital Signs: Last Vital Signs Temp 98 F 10/17/21 11:20 Pulse 68 10/17/21 11:20 Resp 18 10/17/21 11:20 BP 117/55 L 10/17/21 11:20 Pulse Ox 96 10/17/21 11:20 O2 Del Method 10/17/21 07:18 BMI result Body Mass Index 28.3 General: AO X 3, still has significant rib cage pain Resp:? CTA bilateral CVS: S1,S2,RRR,right chest? wall pain. GI: +BS, NT, no distention Skin: No rash Neuro:? motor grossly intact Psych: appropriate affect Objective Data Active Medications Acetaminophen (Acetaminophen 325 Mg Tablet) 650 mg PO Q6H [facility] Last Admin: 10/17/21 10:08 Dose: 650 mg Documented By: ILANA Amlodipine Besylate (Amlodipine Besylate 10 Mg Tablet) 10 mg PO DAILY [facility]; Protocol Last Admin: 10/17/21 10:07 Dose: 10 mg Documented By: ILANA Docusate Sodium (Docusate Sodium 100 Mg Capsule) 100 mg PO BEDTIME PRN PRN Reason: Constipation Guaifenesin (Guaifenesin La 600 Mg Tab.Er.12h) 1,200 mg PO BID [facility] Stop: 10/22/21 08:59 Last Admin: 10/17/21 10:08 Dose: 1,200 mg Documented By: ILANA Heparin Sodium (Porcine) (Heparin Sodium,Porcine 5,000 Unit/Ml Vial) 5,000 unit SUBCUT Q12H [facility] Last Admin: 10/17/21 06:53 Dose: 5,000 unit Documented By: ANNETTE Hydromorphone HCl (Hydromorphone Hcl 0.5 Mg/0.5 Ml Syringe) 0.5 mg IVPUSH Q4H PRN; Protocol PRN Reason: severe breakthrough pain Last Admin: 10/17/21 10:09 Dose: 0.5 mg Documented By: ILANA Lidocaine (Lidocaine 4 % Patch Adh..Patch) 1 patch TRANSDERMA DAILY [facility]; Protocol Last Admin: 10/17/21 10:09 Dose: 1 patch Documented By: ILANA Melatonin (Melatonin 3 Mg Tablet) 6 mg PO BEDTIME PRN PRN Reason: Insomnia Metoprolol Tartrate (Metoprolol Tartrate 25 Mg Tablet) 25 mg PO BID [facility]; Protocol Last Admin: 10/17/21 10:07 Dose: 25 mg Documented By: ILANA Naloxone HCl (Naloxone Hcl 0.4 Mg/Ml Vial) 0.04 mg IVPUSH Q5M PRN PRN Reason: Opiate Reversal Oxycodone HCl (Oxycodone Hcl Immed Release 5 Mg Tablet) 5 mg PO Q4H PRN PRN Reason: Pain, Moderate (Pain Scale 4-6 Oxycodone HCl (Oxycodone Hcl Immed Release 5 Mg Tablet) 10 mg PO Q4H PRN PRN Reason: Pain, Severe (Pain Scale 7-10) Last Admin: 10/17/21 10:54 Dose: 10 mg Documented By: ILANA Polyethylene Glycol (Polyethylene Glycol 3350 17 Gm Powd.Pack) 17 gm PO DAILY PRN PRN Reason: Constipation Senna (Sennosides 8.6 Mg Tablet) 17.2 mg PO BEDTIME PRN PRN Reason: Constipation Sodium Chloride (0.9 % Sodium Chloride Flush 3 Ml Syringe) 3 ml IVFLUSH [facility] Last Admin: 10/17/21 10:08 Dose: 3 ml Documented By: ILANA Torsemide (Torsemide 20 Mg Tablet) 20 mg PO DAILY [facility]; Protocol Last Admin: 10/16/21 09:00 Dose: 20 mg Documented By: MISBAH Labs CBC & Chem 7: 10/15/21 06:20 10/15/21 06:20 Assessment and Plan (1) Rib fractures: Status: Acute Plan 81-year-old female with a past medical history of hypertension presented to the hospital today with a chief complaint of fall.? ? Sustained rib fractures.? Admitted for further management.? Fall: Mechanical in nature.? Rib fractures:? CT scan showed minimally displaced 7th and 8 ribs.? No pneumothorax.? Pain control.? CT surgery follow-up. Incentive spirometry pain management-with dilaudid/tylenol,oxycone ,lidocaine patch ?elevated troponin: Patient denies any chest pain.? EKG nonischemic.? Troponin noted to be 61-->69-->67.? likely d/t ckd, no further testing per cardiology Echocardiogram with LVEF of 65-70%.? There is mild aortic valve calcification mild tricuspid regurgitation. At this time, no specific cardiac intervention necessary as inpatient. Can see cardiology as an outpatient where she lives for consideration of ischemia workup. follow up with her cardilogist in [place]. patient pcp office made aware. History of hypertension:? Continue home amlodipine.? History of peripheral edema: Continue home torsemide. CKD Stage 4: spoke to patient pcp's office LILLIAM Frausto : patient baseline cr is 2.9. DVT prophylaxis:? Subcu heparin PT eval -recomended rehab. Inpatient need: fall rib fracture- pain control fom rib fracture. Quality Stroke Does the patient have a stroke diagnosis?: No VTE Prior VTE?: No VTE Risk Level:: Medical - moderate - high VTE Device Contraindication: N/A - Device Ordered VTE Drug Contraindication: Treatment Not Indicated
[2021-10-18] VITALS (8 sets, daily range): BP systolic 107–149; BP diastolic 58–67; PULSE 66–87; RESP 18; TEMP 36.2–37.1; O2SAT 95–97
[2021-10-18] MEDS: HYDROmorphone HCl 0.5 MG/0.5 ML SYRINGE IVPUSH ×3 (06:27→16:52)
[2021-10-18] MEDS: Heparin Sodium,Porcine 5,000 UNIT/ML VIAL 5000 UNIT SUBCUT ×2 (06:27→18:08)
[2021-10-18] MEDS: Metoprolol Tartrate 25 MG TABLET PO ×2 (09:46→20:59)
[2021-10-18] MEDS: Acetaminophen 325 MG TABLET 650 MG PO ×3 (09:47→21:00)
[2021-10-18] MEDS: guaiFENesin LA 600 MG TAB.ER.12H 1200 MG PO ×2 (09:47→21:01)
[2021-10-18] MEDS: amLODIPine Besylate 10 MG TABLET PO (09:47)
[2021-10-18] MEDS: Torsemide 20 MG TABLET PO (09:47)
[2021-10-18] MEDS: 0.9 % Sodium Chloride Flush 3 ML SYRINGE IVFLUSH ×3 (09:48→21:02)
[2021-10-18] MEDS: Lidocaine 4 % Patch ADH..PATCH 1 PATCH TRANSDERMA (09:48)
[2021-10-18] MEDS: oxyCODONE HCl Immed Release 5 MG TABLET 10 MG PO ×2 (09:57→21:01)
--- NOTE | 2021-10-18 12:30 | MHC.CM.PN ---
IMM addressed today, original to patient and copy filed in chart.
--- NOTE | 2021-10-18 13:47 | HO.PM.IMPN ---
Subjective Subjective Date of Service: 10/18/21 Interval History: rib fx Review of Systems still has significant ribcage pain, unable to sit currently- but once she has sit up then she says that the pain gets better if the pain medications given before( she wants to try pain medication given before movements.) Denies any nausea vomiting or abdominal pain or fever chills. Physical Exam Vital Signs: Vital Signs: Last Vital Signs Temp 98.7 F 10/18/21 11:01 Pulse 69 10/18/21 11:01 Resp 18 10/18/21 11:01 BP 108/58 L 10/18/21 11:01 Pulse Ox 95 10/18/21 11:01 O2 Del Method 10/18/21 11:01 BMI result Body Mass Index 28.3 General: AO X 3, still has significant rib cage pain Resp:? CTA bilateral CVS: S1,S2,RRR,right chest? wall pain. GI: +BS, NT, no distention Skin: No rash Neuro:? motor grossly intact Psych: appropriate affect Objective Data Active Medications Acetaminophen (Acetaminophen 325 Mg Tablet) 650 mg PO Q6H [facility] Last Admin: 10/18/21 09:47 Dose: 650 mg Documented By: TAMELA Amlodipine Besylate (Amlodipine Besylate 10 Mg Tablet) 10 mg PO DAILY [facility]; Protocol Last Admin: 10/18/21 09:47 Dose: 10 mg Documented By: TAMELA Docusate Sodium (Docusate Sodium 100 Mg Capsule) 100 mg PO BEDTIME PRN PRN Reason: Constipation Guaifenesin (Guaifenesin La 600 Mg Tab.Er.12h) 1,200 mg PO BID [facility] Stop: 10/22/21 08:59 Last Admin: 10/18/21 09:47 Dose: 1,200 mg Documented By: TAMELA Heparin Sodium (Porcine) (Heparin Sodium,Porcine 5,000 Unit/Ml Vial) 5,000 unit SUBCUT Q12H [facility] Last Admin: 10/18/21 06:27 Dose: 5,000 unit Documented By: ANTOIC Hydromorphone HCl (Hydromorphone Hcl 0.5 Mg/0.5 Ml Syringe) 0.5 mg IVPUSH Q4H PRN; Protocol PRN Reason: severe breakthrough pain Last Admin: 10/18/21 11:39 Dose: 0.5 mg Documented By: TAMELA Lidocaine (Lidocaine 4 % Patch Adh..Patch) 1 patch TRANSDERMA DAILY [facility]; Protocol Last Admin: 10/18/21 09:48 Dose: 1 patch Documented By: TAMELA Melatonin (Melatonin 3 Mg Tablet) 6 mg PO BEDTIME PRN PRN Reason: Insomnia Metoprolol Tartrate (Metoprolol Tartrate 25 Mg Tablet) 25 mg PO BID [facility]; Protocol Last Admin: 10/18/21 09:46 Dose: 25 mg Documented By: TAMELA Naloxone HCl (Naloxone Hcl 0.4 Mg/Ml Vial) 0.04 mg IVPUSH Q5M PRN PRN Reason: Opiate Reversal Oxycodone HCl (Oxycodone Hcl Immed Release 5 Mg Tablet) 10 mg PO Q4H PRN PRN Reason: Pain, Moderate (Pain Scale 4-6 Oxycodone HCl (Oxycodone Hcl Immed Release 5 Mg Tablet) 10 mg PO BID [facility] Polyethylene Glycol (Polyethylene Glycol 3350 17 Gm Powd.Pack) 17 gm PO DAILY PRN PRN Reason: Constipation Senna (Sennosides 8.6 Mg Tablet) 17.2 mg PO BEDTIME PRN PRN Reason: Constipation Sodium Chloride (0.9 % Sodium Chloride Flush 3 Ml Syringe) [facility] Last Admin: 10/18/21 09:48 Dose: 3 ml Documented By: TAMELA Torsemide (Torsemide 20 Mg Tablet) 20 mg PO DAILY [facility]; Protocol Last Admin: 10/18/21 09:47 Dose: 20 mg Documented By: TAMELA Labs CBC & Chem 7: 10/15/21 06:20 10/15/21 06:20 Assessment and Plan (1) Rib fractures: Status: Acute Plan 81-year-old female with a past medical history of hypertension presented to the hospital today with a chief complaint of fall.? ? Sustained rib fractures.? Admitted for further management.? Fall: Mechanical in nature.? Rib fractures:? CT scan showed minimally displaced 7th and 8 ribs.? No pneumothorax.? Pain control.? CT surgery follow-up. Incentive spirometry pain management-with dilaudid/tylenol,oxycodone ,lidocaine patch ?elevated troponin: Patient denies any chest pain.? EKG nonischemic.? Troponin noted to be 61-->69-->67.? likely d/t ckd, no further testing per cardiology Echocardiogram with LVEF of 65-70%.? There is mild aortic valve calcification mild tricuspid regurgitation. At this time, no specific cardiac intervention necessary as inpatient. Can see cardiology as an outpatient where she lives for consideration of ischemia workup. follow up with her cardilogist in [place]. patient pcp office made aware. History of hypertension:? Continue home amlodipine.? History of peripheral edema: Continue home torsemide. CKD Stage 4: spoke to patient pcp's office LILLIAM Frausto : patient baseline cr is 2.9. DVT prophylaxis:? Subcu heparin PT eval -recomended rehab. Inpatient need: fall rib fracture- pain control fom rib fracture. Quality Stroke Does the patient have a stroke diagnosis?: No VTE Prior VTE?: No VTE Risk Level:: Medical - moderate - high VTE Device Contraindication: N/A - Device Ordered VTE Drug Contraindication: Treatment Not Indicated
[2021-10-19] VITALS: BP 131/66; PULSE 76; RESP 18; TEMP 36.8; O2SAT 95
[2021-10-19 04:00] VITALS: BP 127/60; PULSE 73; RESP 18; TEMP 37.1; O2SAT 97
[2021-10-19] MEDS: Acetaminophen 325 MG TABLET 650 MG PO ×3 (04:07→14:55)
[2021-10-19] MEDS: Heparin Sodium,Porcine 5,000 UNIT/ML VIAL 5000 UNIT SUBCUT (06:23)
[2021-10-19 07:49] VITALS: BP 121/73; PULSE 66; RESP 18; TEMP 36.6; O2SAT 94
[2021-10-19 09:02] VITALS: BP 121/73; PULSE 66; O2SAT 94
[2021-10-19] MEDS: guaiFENesin LA 600 MG TAB.ER.12H 1200 MG PO (09:16)
[2021-10-19] MEDS: amLODIPine Besylate 10 MG TABLET PO (09:17)
[2021-10-19] MEDS: Metoprolol Tartrate 25 MG TABLET PO (09:17)
[2021-10-19] MEDS: oxyCODONE HCl Immed Release 5 MG TABLET 10 MG PO (09:17)
[2021-10-19] MEDS: Docusate Sodium 100 MG CAPSULE PO (09:17)
[2021-10-19] MEDS: 0.9 % Sodium Chloride Flush 3 ML SYRINGE IVFLUSH (09:18)
[2021-10-19] MEDS: Lidocaine 4 % Patch ADH..PATCH 1 PATCH TRANSDERMA (09:18)
[2021-10-19] MEDS: Torsemide 20 MG TABLET PO (09:32)
[2021-10-19 11:44] VITALS: BP 110/51; PULSE 62; RESP 18; TEMP 36.6; O2SAT 95
--- NOTE | 2021-10-19 12:07 | P.DS_ITS ---
DS: Providers Provider Date of Service: 10/19/21 Date of admission: 10/14/21 21:36 Primary care physician: Shruti Wolff MD Consults: 10/14/21 21:42 Consult to Thoracic Surgery Routine Consulting Provider: Jose Lima Reason for consultation: Rib fracture 10/15/21 03:12 Consult to Cardiology Routine Consulting Provider: Luis Barros Reason for consultation: elevated troponin DS: Diagnosis Discharge Diagnosis (1) Rib fractures: Status: Acute DS: Summary Hospital Course Hospital Course: 81-year-old female with a past medical history of hypertension presented to the hospital today with a chief complaint of fall.? ? Sustained rib fractures.?? Hospital course:CT scan showed minimally displaced 7th and 8 ribs.? No pneumothorax.? CT surgery Saw the patient and recommended good pain control - strated pain management-with dilaudid/tylenol,oxycone ,lidocaine patch- patient pain is much more manageable now she is walking with minimal pain. now feeling much better so switched to p.o. pain medications now. patient is going to rehab. ?also patient was found to have elevated troponin: Patient denies any chest pain.? EKG nonischemic.? Troponin noted to be 61-->69-->67.? likely d/t ckd, no further testing per cardiology Echocardiogram with LVEF of 65-70%.? There is mild aortic valve calcification mild tricuspid regurgitation. At this time, no specific cardiac intervention necessary as inpatient. Can see cardiology as an outpatient where she lives for consideration of ischemia workup. follow up with her cardilogist in [place]. patient pcp office made aware. CKD Stage 4: spoke to patient pcp's office LILLIAM Frausto : patient baseline cr is 2.9. plan: pain management with p.o. oxycodone and Tylenol and lidocaine patch, incentive spirometry and if possible as chest physiotherapy. ambulation. moniter bmp due to ckd. Above management discussed with the patient and her in detail length they understand and in agreement with the above plan, time spent 50 minutes and 50% time spent on counseling. Significant findings: As above. Procedures performed: None. Treatment and response: As above. Complications: None. Time Spent with Patient Time attestation: Total time spent providing and/or coordinating discharge services: Discharge coordination time: Greater than 30 minutes Quality: Safe Use of Opioids Does Pt have an Active Cancer Diagnosis on the Problem List?: No Quality: Stroke Does the patient have a stroke diagnosis?: No Physical Exam Vital Signs: Vital Signs: Last Vital Signs Temp 97.8 F 10/19/21 11:44 Pulse 62 10/19/21 11:44 Resp 18 10/19/21 11:44 BP 110/51 L 10/19/21 11:44 Pulse Ox 95 10/19/21 11:44 O2 Del Method 10/19/21 11:44 BMI result Body Mass Index 28.3 ? General: AO X 3, still has significant rib cage pain Resp:? CTA bilateral CVS: S1,S2,RRR,right chest?wall pain seems improved but still has soarness . GI: +BS, NT, no distention,soft . Skin: No rash Neuro:? motor grossly intact Psych: appropriate affect DS: Data Additional Comments Additional comments: CT/CT chest wo con IMPRESSION: Minimally displaced right seventh and eighth rib fractures as above. This is acute. No pneumothorax.? ? Fleischner guidelines were followed. 21:55 21:55 MCV ?93.2 ? ? MCH ?29.7 ? ? MCHC ?31.9 ? ? RDW ?12.9 ? ? Plt Count ?206 ? ? MPV ?8.7 L ? ? Immature Gran % (Auto) ?0.5 H ? ? Neut % (Auto) ?78.7 H ? ? Lymph % (Auto) ?13.6 L ? ? [place] % (Auto) ?6.4 ? ? Eos % (Auto) ?0.4 ? ? Baso % (Auto) ?0.4 ? ? Lymph # (Auto) ?1.3 ? ? [place] # (Auto) ?0.6 ? ? Eos # (Auto) ?0.0 ? ? Baso # (Auto) ?0.0 ? ? Abs Immat Gran (auto) ?0.05 H ? ? Absolute Neuts (auto) ?7.5 ? ? Absolute Nucleated RBC ?0.000 ? ? Nucleated RBC % (auto) ?0.0 ? ? Anion Gap ? ?13 ? Estim Creat Clear Calc ? ?12.4 ? Estimated GFR ? ?16 ? Random Glucose ? ?153 H ? Calcium ? ?8.2 L ? Total Bilirubin ? ?< 0.2 ? Direct Bilirubin ? ?< 0.2 ? AST ? ?18 ? ALT ? ?17 ? Alkaline Phosphatase ? ?54 ? Troponin I High Sens ? ? ?61.0 H* Total Protein ? ?6.0 L ? Albumin ? ?3.5 ? Lipase ? ?44 ? COVID-19 ([facility]) ? ? ? COVID-19 Clin Com ? 10/14/21 10/15/21 10/15/21 ? 21:55 01:19 06:20 MCV ? ? ?94.2 MCH ? ? ?29.8 MCHC ? ? ?31.7 RDW ? ? ?13.0 Plt Count ? ? ?200 MPV ? ? ?8.7 L Immature Gran % (Auto) ? ? ?0.5 H Neut % (Auto) ? ? ?63.4 Lymph % (Auto) ? ? ?21.0 [place] % (Auto) ? ? ?12.3 H Eos % (Auto) ? ? ?2.3 Baso % (Auto) ? ? ?0.5 Lymph # (Auto) ? ? ?1.7 [place] # (Auto) ? ? ?1.0 Eos # (Auto) ? ? ?0.2 Baso # (Auto) ? ? ?0.0 Abs Immat Gran (auto) ? ? ?0.04 H Absolute Neuts (auto) ? ? ?5.2 Absolute Nucleated RBC ? ? ?0.000 Nucleated RBC % (auto) ? ? ?0.0 Anion Gap ? ? ? Estim Creat Clear Calc ? ? ? Estimated GFR ? ? ? Random Glucose ? ? ? Calcium ? ? ? Total Bilirubin ? ? ? Direct Bilirubin ? ? ? AST ? ? ? ALT ? ?B ? Alkaline Phosphatase ? ? ? Troponin I High Sens ? ?69.0 H* ? Total Protein ? ? ? Albumin ? ? ? Lipase ? ? ? COVID-19 ([facility]) ?Negative ? ? COVID-19 Clin Com ?See Note ? ? ? 10/15/21 10/15/21 ? 06:20 07:59 MCV ? ? MCH ? ? MCHC ? ? RDW ? ? Plt Count ? ? MPV ? ? Immature Gran % (Auto) ? ? Neut % (Auto) ? ? Lymph % (Auto) ? ? [place] % (Auto) ? ? Eos % (Auto) ? ? Baso % (Auto) ? ? Lymph # (Auto) ? ? [place] # (Auto) ? ? Eos # (Auto) ? ? Baso # (Auto) ? ? Abs Immat Gran (auto) ? ? Absolute Neuts (auto) ? ? Absolute Nucleated RBC ? ? Nucleated RBC % (auto) ? ? Anion Gap ?14 ? Estim Creat Clear Calc ?13.1B ? Estimated GFR ?16 ? Random Glucose ?109 ? Calcium ?8.2 L ? Total Bilirubin ? ? Direct Bilirubin ? ? AST ? ? ALT ? ? Alkaline Phosphatase ? ? Troponin I High Sens ? ?67.0 H* Total Protein ? ? Albumin ? ? Lipase ? ? COVID-19 ([facility]) ? ? COVID-19 Clin Com ? ? Discharge Plan Discharge Patient Disposition: er SNF Discharge Diagnosis: rib fractures Referrals: [facility] [Outside] - 1 Week Shruti Wolff MD [Primary Care Provider] - 1 Week Discharge Medications: New oxycodone 5 mg Tablet 10 mg PO Q4H PRN (Reason: Pain, Moderate (Pain Scale 4-6) Qty: 20 0RF Rx Instructions: Partial Fill upon patient request. guaifenesin [Mucinex] 600 mg Tablet Extended Release 12hr 1,200 mg PO BID Qty: 10 0RF lidocaine [Lidocaine Pain Relief] 4 % Adhesive Patch,Medicated 1 patch transdermal DAILY Qty: 10 0RF Protocol: Apply to: Apply to: right lateral chest over rib fractures acetaminophen 325 mg Tablet 650 mg PO Q6H PRN (Reason: pain) Qty: 14 0RF docusate sodium 100 mg Capsule 100 mg PO BEDTIME PRN (Reason: Constipation) Qty: 30 0RF polyethylene glycol 3350 17 gram Powder In Packet 17 g PO DAILY PRN (Reason: Constipation) Qty: 30 0RF Continued torsemide 20 mg tablet 1 tab PO QAM amlodipine 10 mg tablet 1 tab PO DAILY metoprolol tartrate 25 mg tablet 1 tab PO BID Discharge Orders: Discharge Order (Routine); Ordered 10/19/21 Ordered By: Lalitha Cramer Diet: Advance to usual diet Activity on Discharge: As tolerated Stand Alone Forms: Patient Portal Discharge page Care Plan Goals: patient was admitted for mechanical fall and afterwards found to have 2 rib fractures with the significant pain- patient was treated with IV pain medications and now feeling much better so switched to p.o. pain medications now. patient is going to rehab. Health Concerns: if any new symptoms including shortness of breath cough fever or any new symptoms patient should go to nearest emergency room. Plan of Treatment: pain management with p.o. oxycodone and Tylenol and lidocaine patch, incentive spirometry and if possible as chest physiotherapy. ambulation. Assessment: as above.
[2021-10-19 12:42] LABS: COVID-19 Test Negative (Negative)
--- NOTE | 2021-10-19 13:01 | MHC.CM.PN ---
Patient has been medically cleared for discharge today. Patient discharged to [facility] via [facility].
== END 2021-10-19 17:28 | disposition skilled nursing facility (03) | DRG 184 ==
LOC: HO.ED 21:00 → HO.EDOVER 21:47 → HO.IMC 22:45
PROVIDERS: Internal Medicine; Admitting Provider Hospitalist; Emergency Provider Emergency Medicine; PCP Family Medicine; Visit Provider Internal Medicine
DX: S22.41XA Multiple fractures of ribs, right side, initial encounter for closed fracture (principal); N18.4 Chronic kidney disease, stage 4 (severe); I12.9 Hypertensive chronic kidney disease with stage 1 through stage 4 chronic kidney disease, or unspecified chronic kidney disease; I08.2 Rheumatic disorders of both aortic and tricuspid valves; W10.8XXA Fall (on) (from) other stairs and steps, initial encounter; Z20.822 Contact with and (suspected) exposure to COVID-19; Z79.899 Other long term (current) drug therapy
CPT/HCPCS: 36415; 71045; 71250; 74176; 80048; 80076; 83690; 84484; 85025; 87635; 93005; 93306; 96374; 96375; 97110; 97116; 97162; 99285; J1170; J2270; Q9957